=== PATIENT | female | born 1980 | race Caucasian/White ===

== ENCOUNTER → 2018-08-16 15:47 | Outpatient (CLI) | payer MEDICAID, SELFPAY ==
[2018-08-16 13:40] VITALS: BMI 27.4
[2018-08-21 15:22] LABS: HPV APTIMA, High Risk Negative (Negative)
== END ==
PROVIDERS: Referring Provider Nurse Practitioner Women's Health; Visit Provider Nurse Practitioner Women's Health
DX: Z12.4 Encounter for screening for malignant neoplasm of cervix (principal); N92.1 Excessive and frequent menstruation with irregular cycle
CPT/HCPCS: 87070; 87205; 87624; 88175; G0145

== ENCOUNTER → 2018-08-22 13:30 | Outpatient (CLI) | payer MEDICAID, SELFPAY ==
[2018-08-16 13:40] VITALS: BMI 27.4
--- NOTE | 2018-08-22 13:33 | US_ITS ---
STUDY: ULTRASOUND OF THE FEMALE PELVIS - COMPLETE REASON FOR EXAM: Female, 38 years old. Menorrhagia TECHNIQUE: Transabdominal and transvaginal (Transvaginal imaging, if present, was performed for enhanced visualization of uterus and endometrium, and posterior adnexal structures). COMPARISON: None. FINDINGS: Anteverted midline uterus 9.2 x 5.6 x 4.2 cm, normal myometrial echotexture. Small calcification near the cervical os in the lower uterine segment measuring 2 x 4 mm. Nabothian cyst present. Endometrium 7.8 mm, normal echotexture. Right ovary 30 x 23 x 17 mm, homogeneously echogenic oval focus within the ovary measuring 10 x 8 x 7 mm likely to represent either a small hemorrhagic cyst or small endometrioma. The ovary exhibits normal vascularity. There is no right adnexal mass, suspicious cyst or free fluid. Left ovary 19 x 18 x 18 mm, normal echotexture and vascularity with no left adnexal mass, suspicious cyst or free fluid. There is no cul-de-sac free fluid. US/Pelvic (Non ) IMPRESSION: Normal endometrium. Normal uterine myometrium. 10 mm echogenic focus within the right ovary may represent a small hemorrhagic cyst or small endometrioma. Normal left ovary. Electronically Signed: Davis Martin MD at 15:18 EDT Tel , Service support ,
--- NOTE | 2018-08-22 13:33 | US_ITS ---
STUDY: ULTRASOUND OF THE FEMALE PELVIS - COMPLETE REASON FOR EXAM: Female, 38 years old. Menorrhagia TECHNIQUE: Transabdominal and transvaginal (Transvaginal imaging, if present, was performed for enhanced visualization of uterus and endometrium, and posterior adnexal structures). COMPARISON: None. FINDINGS: Anteverted midline uterus 9.2 x 5.6 x 4.2 cm, normal myometrial echotexture. Small calcification near the cervical os in the lower uterine segment measuring 2 x 4 mm. Nabothian cyst present. Endometrium 7.8 mm, normal echotexture. Right ovary 30 x 23 x 17 mm, homogeneously echogenic oval focus within the ovary measuring 10 x 8 x 7 mm likely to represent either a small hemorrhagic cyst or small endometrioma. The ovary exhibits normal vascularity. There is no right adnexal mass, suspicious cyst or free fluid. Left ovary 19 x 18 x 18 mm, normal echotexture and vascularity with no left adnexal mass, suspicious cyst or free fluid. There is no cul-de-sac free fluid. US/Transvaginal Non- IMPRESSION: Normal endometrium. Normal uterine myometrium. 10 mm echogenic focus within the right ovary may represent a small hemorrhagic cyst or small endometrioma. Normal left ovary. Electronically Signed: Davis Martin MD at 15:18 EDT Tel , Service support ,
== END ==
PROVIDERS: Referring Provider Nurse Practitioner Women's Health; Visit Provider Nurse Practitioner Women's Health
DX: N92.1 Excessive and frequent menstruation with irregular cycle (principal)
CPT/HCPCS: 76830; 76856; 93976

== ENCOUNTER 2018-08-27 17:59 | Emergency (ER) | payer MEDICAID, SELFPAY ==
[2018-08-16 13:40] VITALS: BMI 27.4
[2018-08-27 18:00] VITALS: BP 122/75; PULSE 106; RESP 18; TEMP 35.8; O2SAT 100; BMI 26.7
[2018-08-27 19:19] LABS: Red Blood Cells-Urine 0 SEEN /hpf (0-5); White Blood Cells 0 SEEN /hpf (0-5)
[2018-08-27 19:22] LABS: Color, Urine Yellow (Yellow); Glucose, Dipstick Normal (Normal); Ketone-Dipstick Negative (Negative); Leukocyte Esterase-Dipstick Negative /ul (Negative); Nitrite-Dipstick Negative (Negative); Occult Blood-Urine Negative /ul (Negative); Protein-Dipstick Negative (Negative); Specific Gravity, Urine 1.025 (1.002-1.030); Urine Bilirubin Dipstick Negative (Negative); Urine Clarity Sl. Cloudy (Clear); Urine Urobilinogen Normal (Normal)
--- NOTE | 2018-08-27 19:24 | ED.VISSUMM ---
- ER Visit Summary Date of Service: 08/27/18 Chief Complaint: Fever, sore throat, malaise History of Present Illness: The patient is a 38 F presents to the emergency department multiple complaints. Patient states over the past week, she had sore throat, generalized malaise, fever, chills. She is also had a nonproductive cough. The patient is concerned because she did have MRSA from a skin infection for the similar symptoms. The patient does have a history of smoking but denies any history of underlying lung disease. She denies any recent sick contacts. Physical Examination: Vital signs reviewed General: Well-nourished, well-developed Head: Normocephalic, atraumatic Eyes: Pupils equal and reactive, extraocular muscles intact Neck, supple, no lymphadenopathy Heart: Regular rate and rhythm Respiratory: No distress, clear bilaterally Abdomen: Soft, nontender, nondistended, no peritoneal signs Back: Nontender Extremities: Nontender, no edema, no cords Skin: Normal color no rash Neuro: Alert and oriented, no focal or lateralizing deficits Test Results: [] Emergency Department Course and Treatment: Metabolic workup was pursued. Screening labs are obtained. These are unremarkable. The patient did have a scant wheeze that would clear with cough. Her chest x-ray shows no evidence of focal infiltrate. Influenza was negative. Given the duration of her symptoms and systemic symptoms, I am going to treat her for infectious bronchitis. She was placed on prednisone and azithromycin. I do feel that she is safe for outpatient therapy. She is comfortable with this plan of care. Treatment Plan: [] Disposition: Discharge Impression: 1. Bronchitis This note was generated with Red Seraphim dictation software. It may contain incorrect words, spelling, and punctuation that were not noted in review of the chart prior to signing ED Disposition - Plan for ED Patient: Instructions: ED Upper Resp Infec Abx Tx Prescriptions: Azithromycin [Zithromax Z-Yoandy] 250 mg PO UD #1 box RX: Prednisone 10 mg PO UD #33 tab Referrals: Care Physician,No Primary [Primary Care Provider] -
[2018-08-27 19:29] LABS: Bacteria RARE /hpf (None Seen); Mucous, Urine 2+ /hpf (<or=2+); Squamous Epithelial Cells - UA 5-10 SEEN /hpf (5-10)
[2018-08-27] MEDS: 0.9% Normal Saline 1,000 ML 1000 ML IV (19:55)
[2018-08-27] MEDS: Ondansetron 4 MG/2 ML Vial IV (19:58)
[2018-08-27] MEDS: Ketorolac 15 MG/ML Vial IV (19:58)
[2018-08-27 20:07] LABS: Absolute Lymphocyte Count 2.56 X10^3/ul (0.83-4.51); Absolute Neutrophil Count 4.2 X10^3/uL (2.0-7.7); Basophil# 0.04 X10^3/uL; Basophil% 0.5 % (0-1); Eosinophils% 2.7 % (0-5); Hematocrit 42.8 % (37-47); Hemoglobin 13.7 g/dl (12.0-15.0); Lymphocyte # 2.56 X10^3/ul (4.0); Mean Corpuscular Hgb 24.7 pg (27.0-32.0); Mean Corpuscular Volume 77.3 fL (81-99); Monocyte# 0.53 X10^3/uL; Neutrophil % 55.7 % (47-70); POSITIVE COUNT NO; POSITIVE DIFFERENTIAL NO; POSITIVE MORPHOLOGY NO; Platelet Count 338 K/mm3 (150-450); Red Blood Count 5.54 M/mm3 (4.2-5.4); White Blood Count 7.5 K/mm3 (4.4-11.0)
[2018-08-27 20:09] VITALS: PULSE 94; RESP 17; O2SAT 96
--- NOTE | 2018-08-27 20:17 | RAD_ITS ---
STUDY: X-RAY CHEST REASON FOR EXAM: Female, 38 years old. Sore throat. Here pain. Headache. TECHNIQUE: PA and lateral views of the chest. COMPARISON: January 23, 2014. FINDINGS: Telemetry wires overlie the chest. The lungs are clear and expanded. There is no demonstrated pleural abnormality. Normal size heart. Normal mediastinum and sung. Normal visualized pulmonary arteries. Normal visualized aortic arch and descending thoracic aorta. Normal visualized thoracic spine. Normal visualized ribs, clavicles, and shoulders. There is no demonstrated abnormality of the visualized soft tissue structures of the upper abdomen. RAD/Chest PA and Lateral IMPRESSION: No acute cardiopulmonary disease or interval change. Electronically Signed: Matthew Degroot DO at 20:40 EDT Tel [phone], Service support ,
[2018-08-27 20:22] LABS: ALB/GLOB Ratio 1.2 RATIO (0.9-2.4); AST(SGOT) 12 U/L (15-37); Alanine Aminotransfer ALT/SGPT 20 U/L (13-56); Albumin, Serum 4.3 g/dL (3.2-5.0); Alkaline Phosphatase 72 U/L (45-117); Anion Gap 5 (5-15); BUN 12 mg/dL (7-18); BUN/Creat Ratio 16.3 RATIO (10-20); Calcium,Total 9.2 mg/dL (8.5-10.1); Chloride 104 mmol/L (98-107); Creatinine, Serum 0.74 mg/dL (0.55-1.02); EST Glomerular Filtration Rate 93 mL/min (>60); Est Glom Filt Rate - Afr Amer 113 mL/min (>60); Estimated Creatinine Clearance 90.93 ml/min; Globulin 3.5 g/dL (2.2-4.2); Glucose 75 mg/dL (74-106); Potassium 3.6 mmol/L (3.5-5.1); Protein, Total 7.8 g/dL (6.4-8.2); Sodium Level 136 mmol/L (136-145)
[2018-08-27 21:25] VITALS: BP 117/65; PULSE 84; RESP 18; O2SAT 95
== END 2018-08-27 21:27 | disposition home or self-care (01) ==
LOC: ED 18:38
PROVIDERS: Emergency Provider Emergency Medicine
DX: J40 Bronchitis, not specified as acute or chronic (principal); Z87.891 Personal history of nicotine dependence; Z86.14 Personal history of Methicillin resistant Staphylococcus aureus infection
CPT/HCPCS: 71046; 80053; 81001; 85025; 87804; 96361; 96374; 96375; 99285; J7030; A4216; J2405

== ENCOUNTER 2018-10-31 17:35 | Emergency (ER) | payer MEDICAID, SELFPAY ==
[2018-10-31 17:35] VITALS: BP 128/82; PULSE 81; RESP 16; TEMP 36.9; O2SAT 100; BMI 27.4
[2018-10-31] MEDS: proCHLORPERazine 10 MG/2 ML Vial IM (17:57)
[2018-10-31] MEDS: DiphenhydrAMINE 50 MG/ML Syringe 25 MG IM (17:57)
[2018-10-31] MEDS: Ketorolac 15 MG/ML Vial IM (17:57)
--- NOTE | 2018-10-31 19:20 | ED.DCSUM_ITS ---
- ER Visit Summary Date of Service: 10/31/18 Chief Complaint: Headache History of Present Illness: The patient is a 38 F with a headache for 3 days. The pain is in her left frontal region. Light bothers her yesterday, but not today. She has had some nausea. She also reports seasonal allergies, sore thro at, and runny nose. She tried mppi-zvc-[id number] remedies. No improvement. No fevers. No trauma. No blood thinners. No focal neurologic symptoms. No change in mental status. Patient has a history of migraines. Physical Examination: Afebrile and vital signs unremarkable. Alert and oriented. Appears uncomfortable but not toxic or in distress. HEENT exam is unremarkable except for some tenderness to her left maxillary region. Neck is nontender with good range of motion. Heart regular. Lungs clear. Cranial nerves grossly intact. Normal strength and sensation. Test Results: None indicated Emergency Department Course and Treatment: Patient treated with Compazine, Benadryl, Toradol. She had improvement of her headache. I believe she also has some sinus symptoms. She was treated with Augmentin. Follow-up as an outpatient. Return for any new or worsening issues. Treatment Plan: As above Disposition: Discharge Impression: 1. Headache 2. Sinusitis This note was generated with [employer] dictation software. It may contain incorrect words, spelling, and punctuation that were not noted in review of the chart prior to signing ED Disposition - Plan for ED Patient: Referrals: Care Physician,No Primary [Primary Care Provider] -
--- NOTE | 2018-10-31 19:20 | ED.DEP ---
ED Disposition - Plan for ED Patient: Instructions: ED Cephalgia Unspecified Prescriptions: Amox/Clavulanate Tablet [Augmentin Tablet] 875 mg PO Q12H #20 tab Referrals: Care Physician,No Primary [Primary Care Provider] -
[2018-10-31] MEDS: Amox/Clavulanate 875 MG Tablet PO (19:41)
== END 2018-10-31 19:43 | disposition home or self-care (01) ==
PROVIDERS: Emergency Provider Emergency Medicine
DX: R51 Headache (principal); J32.9 Chronic sinusitis, unspecified; R11.0 Nausea; G43.909 Migraine, unspecified, not intractable, without status migrainosus; F31.9 Bipolar disorder, unspecified; Z79.899 Other long term (current) drug therapy; F17.210 Nicotine dependence, cigarettes, uncomplicated
CPT/HCPCS: 96372; 99283

== ENCOUNTER 2018-12-13 09:44 | Emergency (ER) | payer MEDICAID, SELFPAY ==
[2018-12-13 09:46] VITALS: BP 161/91; PULSE 97; RESP 17; TEMP 36.8; O2SAT 100; BMI 26.4
--- NOTE | 2018-12-13 09:53 | ED.VISSUMM ---
- ER Visit Summary Date of Service: 12/13/18 Chief Complaint: Anxiety History of Present Illness: The patient is a 38 F who goes to the counseling center in [facility]. She reports that she is typically on gabapentin and Pristiq. She has been off of this for the past 45 days. She had an intake with the counseling center yesterday, but does not have an appointment to see a psychiatrist for approximately 2 months. Patient reports that she picked up her son yesterday from [facility]. She is feeling much more anxious and upset since that time. She denies any suicidal ideation. Physical Examination: Vitals: Stable. Afebrile. General: Well-nourished and well-developed. Head: Normocephalic atraumatic. Neck: Supple, no lymphadenopathy. No JVD. Nontender. Cardiovascular: Regular rate and rhythm. No murmurs. Respiratory: No respiratory distress. Clear to auscultation bilaterally. Abdominal: Soft, nontender, nondistended, normal bowel sounds. No guarding, rebound, or peritoneal signs. Back: Nontender. Extremities: Nontender, no edema. Skin: Normal color, no rash. Neurologic: Alert and oriented ?3. Cranial nerves II through XII are intact. Normal strength and sensation. Mental status exam: Patient appears their stated age. Good posture and grooming. Good eye contact. Normal rate, volume, and latency of speech. No suicidal or homicidal ideation. No auditory or visual hallucinations. Flow of thought is logical. Insight and judgment is fair. Emergency Department Course and Treatment: Patient was treated with a dose of Ativan. She is resting more comfortably. Treatment Plan: The patient adamantly denies any suicidal ideation. She will be discharged with her prescriptions for gabapentin and Pristiq. Instructed to follow-up with her primary care physician next week as previously scheduled. Return to the emergency department for any worsening symptoms or thoughts of harming herself. Disposition: To home in improved and stable condition. Impression: 1. Anxiety. 2. Depression. This note was generated with MashMe.TVation software. It may contain incorrect words, spelling, and punctuation that were not noted in review of the chart prior to signing ED Disposition - Plan for ED Patient: Instructions: Anxiety Reaction Prescriptions: Gabapentin 600 mg PO BIDCM #90 tab Prescription Printed Desvenlafaxine Succinate [Pristiq] 50 mg PO DAILY #30 tab Prescription Printed Referrals: Jaden Rene, DRYING ROOM SUPERVISOR-C [Primary Care Provider] - [facility] [GROUP OF PHYSICIANS] -
[2018-12-13] MEDS: LORazepam 1 MG Tablet PO (10:29)
--- NOTE | 2018-12-13 11:05 | CM.ED ---
SOCIAL WORK INFORMANT: NURSETROY REASON FOR REFERRAL: ANXIETY ASSESSMENT: MET WITH PATIENT IN ROOM. INTRODUCED ROLE AND REASON FOR REFERRAL. PATIENT REPORTS SON WAS RECENTLY RELEASED FROM [facility] AND REPORTS HE'S NOT ANY BETTER FROM WHEN HE WENT IN. EMOTIONAL SUPPORT AND ACTIVE LISTENING PROVIDED TO PATIENT AND SIGNIFICANT OTHER. PATIENT STATES HAS HAD INCREASE IN ANXIETY D/T STRESS WITH SON. PATIENT STATES HAS ALREADY COMPLETED INTAKE APPOINTMENT WITH THE [facility] AND HAS COUNSELING APPOINTMENT SCHEDULED FOR MONDAY. PATIENT ADMITS TO HX OF SUBSTANCE ABUSE AND REPORTS IT HAS BEEN A FEW MONTHS SINCE SHE HAS USED ANY DRUGS. PATIENT CONTINUED TO DISCUSS ISSUES WITH SON AND THIS WORKER PROVIDED EDUCATION ON RESOURCES AND ENCOURAGED PATIENT TO TAKE CARE OF SELF. DISCUSSED HEALTHY COPING AND SELF-CARE. ALL QUESTIONS ANSWERED. PLAN IS FOR PATIENT TO RETURN HOME BEFORE. UPDATED NURSING ON THIS WORKER'S ASSESSMENT. PATIENT TO BE DISCHARGED. 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
[2018-12-13 11:31] VITALS: BP 140/82; PULSE 88; RESP 18; O2SAT 98
== END 2018-12-13 11:33 | disposition home or self-care (01) ==
PROVIDERS: Emergency Provider Emergency Medicine; Family Provider Nurse Practitioner Primary Care; PCP Nurse Practitioner Primary Care
DX: F41.9 Anxiety disorder, unspecified (principal); F32.9 Major depressive disorder, single episode, unspecified; Z79.899 Other long term (current) drug therapy; F17.200 Nicotine dependence, unspecified, uncomplicated
CPT/HCPCS: 99282

== ENCOUNTER 2019-06-21 13:14 | Emergency (ER) | payer MEDICAID, SELFPAY ==
[2019-06-21 13:15] VITALS: BP 139/100; PULSE 94; RESP 18; TEMP 36.6; O2SAT 100; BMI 30.7
[2019-06-21 13:42] LABS: Bacteria 0 SEEN /hpf (None Seen); Mucous, Urine 0 SEEN /hpf (<or=2+); Red Blood Cells-Urine 0 SEEN /hpf (0-5); White Blood Cells 0 SEEN /hpf (0-5)
[2019-06-21 13:48] LABS: Color, Urine Yellow (Yellow); Glucose, Dipstick Normal (Normal); Ketone-Dipstick Negative (Negative); Leukocyte Esterase-Dipstick Negative /ul (Negative); Nitrite-Dipstick Negative (Negative); Occult Blood-Urine Negative /ul (Negative); Protein-Dipstick Negative (Negative); Urine Bilirubin Dipstick Negative (Negative); Urine Clarity Sl. Cloudy (Clear); Urine Urobilinogen Normal (Normal)
[2019-06-21 13:54] LABS: Squamous Epithelial Cells - UA 0-5 SEEN /hpf (5-10)
--- NOTE | 2019-06-21 14:44 | CT_ITS ---
STUDY: CT ABDOMEN AND PELVIS WITHOUT CONTRAST REASON FOR EXAM: Female, 38 years old. LEFT FLANK PAIN -- SURG-TUBAL,GB,RUPTURED ECTOPIC RADIATION DOSAGE (If Supplied By Facility): CTDIvol = ( 10.31 ) mGy, DLP = ( 503.18 ) mGycm TECHNIQUE: Transaxial images were obtained from the dome of the diaphragm to the symphysis pubis without oral contrast, and without intravenous contrast. Sagittal and coronal images were reconstructed. Individualized dose optimization techniques were used for this CT. COMPARISON: None. FINDINGS: The visualized lung bases are unremarkable. The visualized portions of the heart are within normal limits. Normal liver. There are surgical clips in the gallbladder fossa consistent with a prior cholecystectomy. Normal spleen. Normal pancreas. Normal bilateral adrenal glands. Normal right kidney. Punctate calcification in the upper pole calyx of the left kidney. Normal visualized stomach. Normal small intestine. Normal colon. The appendix is visualized and appears normal. Normal abdominal aorta. Normal inferior vena cava. Normal retroperitoneum. Normal urinary bladder. There is evidence of bilateral tubal ligation. Normal abdominal wall. Normal osseous structures. CT/Abdomen/Pelvis without Cont IMPRESSION: Punctate nonobstructive calculus in the upper pole calyx of the left kidney. Electronically Signed: Christos Crain, at 15:16 EST , Service support ,
--- NOTE | 2019-06-21 14:47 | ED.VISSUMM ---
- ER Visit Summary Date of Service: 06/21/19 Chief Complaint: Left lower flank pain History of Present Illness: The patient is a 38 F history of bipolar disorder and prior pyelonephritis. Patient states he has left lower back pain since yesterday. Denies any dysuria. No documented fever. No chills. Last menstrual period was within the last week. She denies any falls or trauma. No vaginal bleeding. No discharge. Patient denies any back injury. States she has similar episode like this before with an infection. Physical Examination: Middle-aged female no acute distress vital signs are stable afebrile. H EENT exam unremarkable. Neck nontender no lymphadenopathy. Lungs clear to auscultation bilaterally. Heart regular rhythm no murmur abdomen soft nontender normal bowel sounds no peritoneal signs. Absolutely no abdominal tenderness. Both lower quadrants are completely nontender. There is no hematoma or masses. No signs of obstruction. Patient moving all 4 extremities. Neurovascular intact. There is no edema. Back exam she has reproducible left lower back paraspinal tenderness. There is no redness or warmth. No bruising. No signs of trauma. Spine is nontender. Neurologic exam normal. Test Results: Nurse ordered urine in triage which was completely normal no signs of infection or blood. CT flank shows no acute abnormality. There is a kidney stone in the left kidney but is not in the ureter or causing any acute pathology. Emergency Department Course and Treatment: Clinically this seems to be paraspinal muscle spasm and strain. Pt is adamant that she thinks that there is something else going on and her and her both are requesting a CAT scan. Clinically ill but he is either a stone or pyelonephritis. Treatment Plan: Repeat exam she is doing well at 1541. I discussed with patient having this is secondary to musculoskeletal back pain. Hot shower. Warm bath. Motrin. Massage. Disposition: Discharge Impression: Acute left lower back and flank pain secondary to musculoskeletal etiology This note was generated with Diamond Mult[employer] dictation software. It may contain incorrect words, spelling, and punctuation that were not noted in review of the chart prior to signing ED Disposition - Plan for ED Patient: Referrals: Jaden Rene NP-C [Primary Care Provider] -
--- NOTE | 2019-06-21 15:42 | ED.DEP ---
ED Disposition - Plan for ED Patient: Disposition: Home or Assisted Living Instructions: BACK SPASM, No Trauma Prescriptions: Ibuprofen [Motrin] 800 mg PO Q8H PRN PRN #20 tab PRN Reason: Pain Or Fever Prescription Printed Referrals: Jaden Rene NP-C [Primary Care Provider] - 1 Week if not improving Additional Instructions: Shower and warm bath for muscle pain. Massage. Tylenol Motrin for pain. This should progressively improve. Follow-up with your doctor if not getting better.
[2019-06-21] MEDS: Ketorolac 60 MG/2 ML Vial IM (15:52)
== END 2019-06-21 16:11 | disposition home or self-care (01) ==
PROVIDERS: Emergency Provider Emergency Medicine; PCP Nurse Practitioner Primary Care
DX: M54.5 Low back pain (principal); M62.830 Muscle spasm of back; N20.0 Calculus of kidney; F31.9 Bipolar disorder, unspecified; Z72.0 Tobacco use; Z79.899 Other long term (current) drug therapy; Z87.440 Personal history of urinary (tract) infections
CPT/HCPCS: 74176; 81001; 96372; 99282

== ENCOUNTER 2019-07-10 14:30 | Emergency (ER) | payer MEDICAID, SELFPAY ==
[2019-07-10 14:31] VITALS: BP 125/78; PULSE 84; RESP 17; TEMP 36.4; O2SAT 97; BMI 28.1
[2019-07-10 15:30] VITALS: RESP 16
--- NOTE | 2019-07-10 15:41 | NURSING ---
PAGED DR BOOKER AT THE [facility]
[2019-07-10 16:00] VITALS: RESP 16
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
--- NOTE | 2019-07-10 16:15 | NURSING ---
CALLED [facility] FOR DR BOOKER. SHE IS IN WITH A PATIENT.
--- NOTE | 2019-07-10 16:30 | ED.DCSUM_ITS ---
- ER Visit Summary Date of Service: 07/10/19 Chief Complaint: Auditory hallucinations History of Present Illness: The patient is a 38 F who goes to the counseling center and sees Dr. Tillman. She reports that 3 months ago her Pristiq was stopped because she was having problems with anxiety. States that for approximately 2 months she is been having auditory hallucinations. She denies command hallucinations. She reports that she recognizes the voices and they are telling her bad things about herself. She saw her psychiatrist 2 weeks ago and had her Zyprexa increased. She feels that this is making things worse. Patient does admit to feeling depressed and having suicidal thoughts. She denies having a plan. Physical Examination: Vitals: Stable. Afebrile. General: Well-nourished and well-developed. Head: Normocephalic atraumatic. Neck: Supple, no lymphadenopathy. No JVD. Nontender. Cardiovascular: Regular rate and rhythm. No murmurs. Respiratory: No respiratory distress. Clear to auscultation bilaterally. Abdominal: Soft, nontender, nondistended, normal bowel sounds. No guarding, rebound, or peritoneal signs. Back: Nontender. Extremities: Nontender, no edema. Skin: Normal color, no rash. Neurologic: Alert and oriented ?3. Cranial nerves II through XII are intact. Normal strength and sensation. Mental status exam: Patient appears their stated age. Good posture and grooming. Good eye contact. Normal rate, volume, and latency of speech. No suicidal or homicidal ideation. No visual hallucinations. Flow of thought is logical. Insight and judgment is fair. Emergency Department Course and Treatment: The patient is resting comfortably. She meets no criteria for pink slip. She does not want voluntary hospitalization. Treatment Plan: The patient was discussed with the counseling center and with her psychiatrist. She will be discharged instructions to follow-up with them tomorrow afternoon. They will discuss medication changes with her at that point. Return to the emergency department for any worsening symptoms. Disposition: To home in improved and stable condition. Impression: 1. Depression. 2. Auditory hallucinations. This note was generated with Innova Cardation software. It may contain incorrect words, spelling, and punctuation that were not noted in review of the chart prior to signing ED Disposition - Plan for ED Patient: Instructions: Depression Referrals: Counseling,Center [GROUP OF PHYSICIANS] - As soon as possible
== END 2019-07-10 17:39 | disposition home or self-care (01) ==
PROVIDERS: Emergency Provider Emergency Medicine; PCP Nurse Practitioner Primary Care
DX: F32.9 Major depressive disorder, single episode, unspecified (principal); R44.0 Auditory hallucinations; R45.851 Suicidal ideations; R05 Cough; F41.9 Anxiety disorder, unspecified; Z72.0 Tobacco use; Z79.899 Other long term (current) drug therapy
CPT/HCPCS: 99283

== ENCOUNTER 2019-07-30 16:03 | Emergency (ER) | payer MEDICAID, SELFPAY ==
[2019-07-30 16:04] VITALS: BP 119/71; PULSE 107; RESP 16; TEMP 36.4; O2SAT 98; BMI 27.4
[2019-07-30 17:14] VITALS: O2SAT 99
--- NOTE | 2019-07-30 17:17 | ED.DCSUM_ITS ---
History of Present Illness Chief Complaint: Cough Informant: Patient Onset: Weeks - 2 weeks Current Severity: Mild Maximum Severity: Moderate Narrative: Patient presents with 2-week history of cough and subjective fevers. She is bringing up yellow sputum. She does have slight shortness of breath but denies wheezing. She is a long-term smoker but states he is never been diagnosed with COPD. - Past Medical History (1) Bipolar disorder Status: Chronic (2) Anxiety Status: Chronic Past Medical History - Allergies and Home Meds Allergies/Adverse Reactions: Allergies meloxicam [From Mobic] Allergy (Verified 07/30/19 16:06) Hives naproxen Allergy (Verified 07/30/19 16:06) Hives sulfamethoxazole [From Bactrim] Allergy (Verified 07/30/19 16:06) Hives trimethoprim [From Bactrim] Allergy (Verified 07/30/19 16:06) Hives doxycycline Adverse Reaction (Severe, Verified 07/30/19 16:06) Swelling Primary Care Physician: Jaden Rene NP-C [Primary Care Provider] - 1 Week if not improving Prior records reviewed: Yes Lives: Spouse/ Significant Other Smoking Status: Current every day smoker Review of Systems General: Denies: Fever, Subjective Eyes: Denies: Visual changes - bilaterally ENT: Denies: Bilateral ear pain Cardiovascular: Denies: Chest pain Respiratory: Reports: Dyspnea, Cough. Denies: Sputum Gastrointestinal: Denies: Abdominal pain, Nausea, Vomiting, Diarrhea Genitourinary: Denies: Dysuria Musculoskeletal: Denies: Myalgias, Extremity Pain Skin: Denies: Rash Allergy: Denies: Uticaria Physical Exam Vital Signs/Narrative: Vital Signs Temp Pulse Resp BP Pulse Ox 07/30/19 16:04 97.6 F L 107 H 16 119/71 98 Inital Vital Signs reviewed: Yes General: Well nourished, Well developed Head: Normocephalic ENT: Moist mucous membranes Neck: Supple Cardiovascular: Regular rate, Regular rhythm Respiratory: No distress, Decreased Air Movement - Slightly diminished air movement throughout. Abdomen: Soft, Nontender Extremities: Nontender Skin: Normal color Neurological: Alert, Oriented x3 Psychological: Normal affect Diagnostic/Tx/Re-eval - Medical Decision Making With 2 weeks of symptoms patient will be covered with antibiotics for bronchitis. I do not feel that the x-ray would change our course of treatment, therefore it was deferred. She will be given prescription for Z-Yoandy and albuterol. She is to follow-up with her primary care physician or return for worsening symptoms. ED Disposition - Plan for ED Patient: Disposition: Home or Assisted Living Diagnosis: Bronchitis Instructions: BRONCHITIS, Antiobiotic Treatment (Adult) Prescriptions: Albuterol Inhaler [Ventolin Hfa] 1 - 2 puff INHALATION Q4H PRN PRN #1 inhaler PRN Reason: Wheezing Transmission Status: Received by [address] Azithromycin [Zithromax] 250 mg PO DAILY #4 tab Transmission Status: Received by [facility] Referrals: Jaden Rene, [employer] [Primary Care Provider] - 1 Week if not improving
[2019-07-30 17:20] VITALS: BP 125/73; PULSE 95; RESP 16; O2SAT 99
[2019-07-30] MEDS: Azithromycin 250 MG Tablet 500 MG PO (17:22)
== END 2019-07-30 17:37 | disposition home or self-care (01) ==
PROVIDERS: Emergency Provider Emergency Medicine; PCP Nurse Practitioner Primary Care
DX: J44.9 Chronic obstructive pulmonary disease, unspecified (principal); F17.200 Nicotine dependence, unspecified, uncomplicated; F31.9 Bipolar disorder, unspecified; Z79.899 Other long term (current) drug therapy; F41.9 Anxiety disorder, unspecified; Z88.8 Allergy status to other drugs, medicaments and biological substances; Z88.2 Allergy status to sulfonamides; Z88.1 Allergy status to other antibiotic agents
CPT/HCPCS: 99283

== ENCOUNTER 2020-07-22 12:10 | Emergency (ER) | payer MEDICAID, SELFPAY ==
[2020-07-22 12:11] VITALS: BP 128/85; PULSE 105; RESP 16; TEMP 36.5; O2SAT 100; BMI 25.7
[2020-07-22 12:20] VITALS: BP 128/85
--- NOTE | 2020-07-22 12:30 | ED.DCSUM_ITS ---
- ER Visit Summary Date of Service: 07/22/20 Chief Complaint: Back pain, possible History of Present Illness: The patient is a 39 F who presents with back pain. She was trying to lift a trailer yesterday when she felt pain in her lower back. Pain is worse with movement. She took ibuprofen at home which did not help. She denies any numbness or tingling or radiation of pain to her legs. She denies any bowel or bladder incontinence. She is also concerned that she may be . She does have a history of back pain and had physical therapy last winter and felt better after this. Physical Examination: Vital signs reviewed. HEENT exam unremarkable. Heart is regular rate and rhythm without murmurs. Lungs are clear to auscultation. Abdomen is soft and nontender. Back is tender in the lumbar region diffusely. Extremities reveal no edema. Skin exam normal. Neurologic exam normal. Test Results: hCG is 1 Emergency Department Course and Treatment: Patient likely has a lumbosacral strain. is negative. She will take Tylenol and ibuprofen. I will give her Flexeril. She will follow-up with her PCP. Treatment Plan: [] Disposition: Discharge Impression: Lumbar strain This note was generated with Telly dictation software. It may contain incorrect words, spelling, and punctuation that were not noted in review of the chart prior to signing ED Disposition - Plan for ED Patient: Disposition: Home or Assisted Living Instructions: ED Back Sprain/Strain Prescriptions: cycloBENZAPRine HCl [Flexeril] 10 mg PO TID PRN #20 tab PRN Reason: Muscle Spasm Transmission Status: Pending to [facility] Referrals: Jaden Rene [employer], [employer] [Primary Care Provider] -
[2020-07-22 13:42] LABS: hCG Titer Quant., Serum 1 mIU/mL (1-3)
== END 2020-07-22 14:29 | disposition home or self-care (01) ==
PROVIDERS: Emergency Provider Emergency Medicine; PCP Nurse Practitioner Primary Care
DX: S39.012A Strain of muscle, fascia and tendon of lower back, initial encounter (principal); X50.9XXA Other and unspecified overexertion or strenuous movements or postures, initial encounter; Y93.9 Activity, unspecified; Y92.9 Unspecified place or not applicable; Y99.9 Unspecified external cause status; Z72.0 Tobacco use; Z79.899 Other long term (current) drug therapy
CPT/HCPCS: 36415; 84702; 99282